=== PATIENT | male | born 1970 | race Caucasian/White ===

== ENCOUNTER 2018-12-18 00:01 | Emergency (ER) | payer SELFPAY ==
[~2018-12-18] VITALS: Ht 162.6 cm; Wt 96.6 kg
[2018-12-18 00:14] VITALS: Ht 162.6 cm; Wt 96.6 kg
[2018-12-18 02:33] LABS: CALCIUM 8.7 mg/dL (8.5-10.1); CARBON DIOXIDE 22.7 mmol/L (21-32); CREATININE SERUM 1.4 mg/dL (0.7-1.3); POTASSIUM SERUM 4.2 mmol/L (3.5-5.1)
[2018-12-18 02:34] LABS: BASOPHIL % 0.4 % (0-2); PLATELET COUNT 202 x10^3mcL (130-400); RED CELL DISTRIBUTION WIDTH 12.8 % (11.5-14.5)
[2018-12-18 02:59] LABS: microscopic required? YES; urine erythrocyte 3+ (NEGATIVE)
[2018-12-18 03:58] VITALS: BP 102/63
== END 2018-12-18 03:58 | disposition home or self-care (01) ==
LOC: ED 00:01
PROVIDERS: Specialist
DX: R30.0 Dysuria (principal); N48.89 Other specified disorders of penis
CPT/HCPCS: 36415; 87491; 87591; Q0092